=== PATIENT | male | born 1960 | race Caucasian/White ===

== ENCOUNTER 2023-04-21 09:48 | Day surgery (SDC) | payer BC ==
[2023-04-19 09:48] VITALS: BMI 34.9
[2023-04-21] MEDS ORDERED: Bupivacaine PF 0.5% 30 ML VIAL ONE (11:49)
[2023-04-21] MEDS ORDERED: Midazolam HCl 2 mg/2 ml Vial ONE (11:58)
[2023-04-21] MEDS ORDERED: fentaNYL 50 mcg/mL 1 mL Vial ONE (11:58)
[2023-04-21] MEDS ORDERED: Ondansetron PF 4 MG/2 ML Vial ONE (11:58)
[2023-04-21] MEDS ORDERED: Ketorolac Tromethamine 30 MG/ML VIAL ONE (11:58)
[2023-04-21] MEDS ORDERED: PROPOFOL 20 ML ONE (11:58)
[2023-04-21] MEDS ORDERED: CEFAZOLIN 2 GM VIAL ONE (12:03)
[2023-04-21] MEDS ORDERED: ePHEDrine Sulfate 50 MG/10 ML VIAL ONE (12:25)
[2023-04-21] MEDS ORDERED: Glycopyrrolate 0.2 MG/ML 5 ML SYRINGE ONE (12:54)
== END 2023-04-21 14:00 | disposition home or self-care (01) ==
LOC: CSHSDC 09:48
PROVIDERS: ATTEND Podiatrist Foot & Ankle Surgery
PROC: 0SSH05Z Reposition Right Tarsal Joint with External Fixation Device, Open Approach (ICD-10-PCS; principal; 2023-04-21)
DX: Z01.818 Encounter for other preprocedural examination (principal); M20.21 Hallux rigidus, right foot; I10 Essential (primary) hypertension; E78.00 Pure hypercholesterolemia, unspecified; G89.29 Other chronic pain; Z79.899 Other long term (current) drug therapy
CPT/HCPCS: C1776; J1885; J2250; J2405; J2704; J3010; S0020